=== PATIENT | male | born 1980 | race Caucasian/White ===

== ENCOUNTER 2016-12-04 08:24 | Emergency (ER) | payer BC ==
[2016-12-04 08:39] VITALS: BP 125/59
[2016-12-04] MEDS ORDERED: Cyclobenzaprine 10 MG Tab PO ONE (08:53)
[2016-12-04] MEDS ORDERED: Acetaminophen/oxyCODONE 325-5 MG Tab PO ONE (08:53)
--- NOTE | 2016-12-04 08:56 | EDM.PDOC ---
ED HPI GENERAL MEDICAL PROBLEM - General Chief Complaint: Lower Extremity Injury/Pain Stated Complaint: HURT RT HIP Time Seen by Provider: 12/04/16 08:54 Source of Information: Reports: Patient History Limitations: Reports: No Limitations - History of Present Illness INITIAL COMMENTS - FREE TEXT/NARRATIVE: pt arrived with pain in the rt groin. he was playing softball last nite and stopped quickly he developed acute pain in the groin. Onset: Gradual Duration: Hour(s): Location: Reports: Lower Extremity, Right Quality: Reports: Burning, Sharp Associated Symptoms: Reports: Other ( severe rt groin pain. ) Right Groin Pain Score (Numeric/FACES): 9 - Related Data Allergies Allergy/AdvReac Type Severity Reaction Status Date / Time amoxicillin [Amoxicillin] Allergy Hives Verified 01/04/14 20:31 Home Meds: Home Meds NK [No Known Home Meds] 12/04/16 [History] Past Medical History - Past Health History Medical/Surgical History: Denies Medical/Surgical History Social & Family History - Tobacco Use Smoking Status *Q: Never Smoker - Caffeine Use Caffeine Use: Reports: Soda - Recreational Drug Use Recreational Drug Use: No Review of Systems - Review of Systems Review Of Systems: See Below Constitutional: Reports: No Symptoms Eyes: Reports: No Symptoms Ears: Reports: No Symptoms Nose: Reports: No Symptoms Mouth/Throat: Reports: No Symptoms Respiratory: Reports: No Symptoms Cardiovascular: Reports: No Symptoms GI/Abdominal: Reports: No Symptoms Genitourinary: Reports: No Symptoms Musculoskeletal: Reports: Muscle Pain, Other (pt has marked tenderness in the rt groin and upper muscles of the thigh on the inner aspect. ) Skin: Reports: No Symptoms ED EXAM, GENERAL - Physical Exam Exam: See Below Free Text/Narrative:: pt arrived with pain in the rt groin. He was playing softball and stopped quickly. Exam Limited By: No Limitations General Appearance: Alert Ears: Normal External Exam Nose: Normal Inspection GI/Abdominal: Soft, Non-Tender (Male) Exam: Other (pt has alot of tenderness in the rt groin area. He is very tender in the inner uper thigh muscles. He is very uncomfortable with getting up and down. ) Rectal (Males) Exam: Deferred Back Exam: Normal Inspection Extremities: Other ( alot of discomfort in the upper inner thigh muscles. ) Neurological: Alert Course - Vital Signs Last Recorded V/S: Last Vital Signs Temp 36.4 C 12/04/16 08:37 Pulse 75 12/04/16 08:37 Resp 20 12/04/16 08:37 BP 125/59 L 12/04/16 08:37 Pulse Ox 97 12/04/16 08:37 - Orders/Labs/Meds Meds: Medications Discontinued Medications Generic Name Dose Route Start Last Admin Trade Name Freq PRN Reason Stop Dose Admin Cyclobenzaprine HCl 10 mg 12/04/16 08:53 12/04/16 08:58 Flexeril PO 12/04/16 08:54 10 mg ONETIME ONE Administration Oxycodone/Acetaminophen 1 tab 12/04/16 08:53 12/04/16 08:58 Percocet 325-5 Mg PO 12/04/16 08:54 1 tab ONETIME ONE Administration - Re-Assessments/Exams Free Text/Narrative Re-Assessment/Exam: 12/04/16 09:45 xray of the hip and pelvis was found to be neg. Departure - Departure Time of Disposition: 09:37 Disposition: Home, Self-Care 01 Condition: fair Clinical Impression: Severe rt groin pain - Discharge Information Referrals: PCP,None [Primary Care Provider] - Forms: ED Department Discharge Care Plan Goals: ice to area, flexeril 10 mg hs, 5 mg qam, motrin 600mg tid, percocet 5/325 q6h prn for pain.
--- NOTE | 2016-12-04 09:37 | CR ---
Hip Min 1V w Pelvis Rt HISTORY: Pain COMPARISON: None FINDINGS: Pelvis demonstrates no fracture or diastases. Right hip demonstrates no fracture or disloc ation.
== END 2016-12-04 09:55 | disposition home or self-care (01) ==
LOC: JP.ED 08:24
DX: R10.30 Lower abdominal pain, unspecified (principal); Z88.1 Allergy status to other antibiotic agents
CPT/HCPCS: 73501; 99284; A9270